=== PATIENT | female | born 1980 | race Caucasian/White ===

== ENCOUNTER → 2017-07-11 | Outpatient (CLI) | payer BC ==
[~2017-07-11] MED LIST: DOCU100C37 PO; FERR325T18 PO; IBUP-1773 PO; LEVO50TA6 PO; PREN-53 PO
--- NOTE | 2017-07-11 18:24 | Diagnostic Imaging Report ---
INDICATION: Size and dates. TECHNIQUE: Multiple real-time grayscale images were obtained over the gravid uterus. COMPARISON: None. FINDINGS: There is a single living intrauterine in a variable presentation. There is a normal volume of amniotic fluid. Placenta is posterior. There is no previa. The anatomical survey is unremarkable. The heart rate is 152 beats per minute and regular. Cervical length is 6.3 cm. The biometry correlates with a gestational age of 20 weeks 5 days. IMPRESSION: Single living intrauterine with a sonographically estimated gestational age of 20 weeks 5 days and estimated date of confinement of November 23, 2017. Biometrical measurements are as follows: Biparietal 4.77 cm, age 20 weeks 3 days. Head circumference 17.84 cm, age 20 weeks 3 days. Abdominal circumference 15.44 cm, age 21 weeks 4 days. Femur length 3.28 cm, age 20 weeks 2 days. Sonographic estimate age: 20 weeks 5 days. Sonographic estimated date of delivery: . Estimated Weight: 381 gm (+/- 56 gm). LMP percentile: 88%. heart rate: 152 beats per minute. number: 1 of 1. Dictated by: Dictated on workstation # [id number]
== END ==
LOC: RAD 17:27
PROVIDERS: ATTEND Obstetrics & Gynecology
DX: Z34.92 Encounter for supervision of normal pregnancy, unspecified, second trimester (principal); Z3A.20 20 weeks gestation of pregnancy
CPT/HCPCS: 76805

== ENCOUNTER 2017-11-24 09:18 | Inpatient (IN) | payer BC ==
[2017-11-24] VITALS (31 sets, daily range): BP systolic 98–130; BP diastolic 55–81
[~2017-11-24] VITALS: Ht 170.2 cm; Wt 88.0 kg
[2017-11-24] MEDS ORDERED: D5 LR IV SOLUTION 1,000 ML IV SCH ×2 (10:18→10:19)
[2017-11-24] MEDS ORDERED: fentaNYL INJECTION 100 MCG/2 ML AMP ONE (10:18)
[2017-11-24] MEDS ORDERED: BUPIVACAINE 0.25% 30 ML (SENSORCAINE) VIAL ONE (10:18)
[2017-11-24] MEDS ORDERED: LIDOCAINE PF 2% 5 ML (XYLOCAINE) VIAL ONE (10:18)
[2017-11-24 10:24] LABS: BASOPHILS % (AUTO) 0 % (0-10); EOSINOPHILS # (AUTO) 0.1 10^3/uL (0.0-0.3); EOSINOPHILS % (AUTO) 1 % (0-10); HEMATOCRIT 37 % (35-52); HEMOGLOBIN 12.8 G/DL (11.5-16.0); LYMPHOCYTES # (AUTO) 2.7 X 10^3 (1.0-4.0); LYMPHOCYTES % (AUTO) 29 % (12-44); MEAN CORPUSCULAR HGB CONC 35 G/DL (32-36); MEAN CORPUSCULAR VOLUME 93 FL (80-99); MEAN PLATELET VOLUME 9.6 FL (7.4-10.4); MONOCYTES # (AUTO) 0.9 X 10^3 (0.0-1.0); MONOCYTES % (AUTO) 9 % (0-12); NEUTROPHILS # (AUTO) 5.6 X 10^3 (1.8-7.8); NEUTROPHILS % (AUTO) 60 % (42-75); PLATELET COUNT 190 10^3/uL (130-400); RED BLOOD COUNT 3.94 10^6/uL (4.35-5.85); RED CELL DISTRIBUTION WIDTH 12.7 % (10.0-14.5); WHITE BLOOD COUNT 9.3 10^3/uL (4.3-11.0)
--- NOTE | 2017-11-24 10:24 | History & Physical-OB ---
OB - Chief Complaint & HPI Date/Time Date of Admission: Date of Admission: Nov 24, 2017 at 9:18 am Time Seen by Provider: 10:15 Chief Complaint/History OB-Reason for Admission/Chief: Onset of Labor Hx : 3 Hx Para: 1 Expected Date of Delivery: Nov 28, 2017 Gestational Age in Weeks: 39 Gestational Age in Days: 3 Admission Nurse Assessment Rev: Yes History of Labs A pos Antibody neg RI RPR NR HBsAg NR HIV NR GC neg GBS neg Allergies and Home Medications Allergies Coded Allergies: codeine (Unverified Allergy, Mild, 02/14/16) tachycardia, disorientation Home Medications Docusate Sodium 100 Mg Capsule, 100 MG PO BID PRN for CONSTIPATION Prescribed by: WENDY NOEL on 02/16/16814 Ferrous Sulfate 325 Mg Tablet, 325 MG PO DAILY@08 Prescribed by: WENDY NOEL on 02/16/16814 Ibuprofen 600 Mg Tablet, 600 MG PO Q6H Prescribed by: WENDY NOEL on 02/16/16814 Levothyroxine Sodium 50 Mcg Tablet, 50 MCG PO DAILY, (Reported) Mcg024/Iron Fumarate/FA/Dss 1 Each Tablet, 1 EACH PO DAILY, (Reported) Patient Home Medication List Home Medication List Reviewed: Yes OB - History Hx of Present Care: Yes Ultrasounds: Normal mid trimester US Obstetrical Complications: None Medical Complications: None Delivery History Hx Blood Disorders: No Adverse Rxn to Tranfusion: No Patient Past Medical History subclinical hypothyroidism Social History/Family History HIV/AIDS: No Sexually Transmitted Disease: No Immunizations Tetanus Booster (TDap): Less than 5yrs Date of Influenza Vaccine: Jan 29, 2016 OB - Admission Exam Physical Exam HEENT: NCAT Heart: Rhythm Normal Lungs: Clear Abdomen: Gravid Extremities: Normal Reflexes: Normal Cervical Dilatation: 9cm Effacement: 100% Station: -1 Membranes: Intact Heart Rate: 130's Accelerations: Accelerations Present Decelerations: No Decelerations Short Term Variability: Present Mcfp Variability: Average (6-25) Contractions on Admission: < 5 Minutes Apart Intensity: Firm Labs Laboratory Tests Test 11/24/17 09:55 Range/Units OB - Assessment/Plan/Diagnosis Assessment Assessment: active labor Admission Dx 37 yo @ 39.3 Active labor AMA GBS neg Admission Status: Inpatient Order (span 2 midnights) Reason for Inpatient Admission: 37 yo @ 39.3 Active labor AMA GBS neg Plan Plan: Expectant Management WENDY NOEL DO Nov 24, 2017 10:24 am
[2017-11-24 10:25] LABS: MEAN CORPUSCULAR HEMOGLOBIN 32 PG (25-34)
--- NOTE | 2017-11-24 10:25 | Discharge Inst-Women's Service ---
Discharge Inst-Women's Serv Depart Medication/Instructions New, Converted or Re-Newed RX: RX on Chart Consults/Follow Up Additional Follow Up: Yes Orders/Referrals Dr. Noel in 6 weeks Activity Activity: Activity as Tolerated Driving Instructions: No Driving for 1 Week NO SMOKING: NO SMOKING Nothing Inside Vagina: No Douching, No [place], No Tampons Diet Discharge Diet: No Restrictions Symptoms to Report to : Bleeding Excessive, Pain Increased, Fever Over 101 Degrees F, Vaginal Bleeding Increase, Questions/Concerns For Any Problems or Questions: Contact Your Physician Skin/Wound Care Bathing Instructions: Shower (or stiz baths x 2 weeks) WENDY NOEL DO Nov 24, 2017 10:25 am
[2017-11-24] MEDS ORDERED: ACHD5005 PO (10:27)
[2017-11-24] MEDS ORDERED: DOCU100C37 PO (10:27)
[2017-11-24] MEDS ORDERED: IBUP-844 PO (10:27)
[2017-11-24] MEDS ORDERED: Benzocaine/Menthol TP (10:27)
[2017-11-24] MEDS ORDERED: MINERAL OIL CONCENTRATE 99.9% 15 ML UDC TOP PRN (10:30)
[2017-11-24] MEDS ORDERED: TETANUS,DIPTH,PERTUSS P/F (BOOSTRIX) 0.5 ML VIAL IM ONE (10:30)
[2017-11-24] MEDS ORDERED: DIBUCAINE (NUPERCAINAL) 1% OINT 30 GM TOP PRN (10:30)
[2017-11-24] MEDS ORDERED: HYDROcodone/APAP 5 MG/325 MG (LORTAB) TAB PO PRN (10:30)
[2017-11-24] MEDS ORDERED: BENZOCAINE/MENTHOL (DERMOPLAST) 56 ML CAN TP PRN (10:30)
[2017-11-24] MEDS ORDERED: MEASLES,MUMPS,RUBELLA 1 EA INJ SQ ONE (10:30)
[2017-11-24] MEDS ORDERED: WITCH HAZEL(TUCKS) 40 EA JAR TOP PRN (10:30)
[2017-11-24] MEDS ORDERED: SUFENTA 0.6MCG/ML BUPIVA 0.125 100 ML ONE (10:32)
[2017-11-24] MEDS ORDERED: LIDOCAINE/EPI 2% 1:200,00 (XYLOCAINE) 10 ML VIAL ONE (10:42)
[2017-11-24] MEDS ORDERED: LACTATED RINGERS 1,000 ML IV SCH ×2 (10:44)
--- OUTSIDE RECORDS SUMMARY | 2017-11-24 10:44 | XMS REPORT ---
Author Author MADAN OSCAR [facility] [place] eClinicalWorks Address Unknown Phone Unavailable Care Team Providers Care [employer] Sealer Name Role Phone MADAN OSCAR CP Unavailable Allergies No Known Allergies Problems Problem Type Condition Code Onset Dates Condition Status Problem Unspecified breast screening V76.10 Active Assessment Encounter for immunization Z23 Active Problem Postnasal drip 784.91 Active Problem Other specified symptom associated with female genital organs 625.8 Active Problem Acute sinusitis, unspecified 461.9 Active Problem Screening for malignant neoplasm of the cervix V76.2 Active Problem Special screening examination, human papillomavirus [HPV] V73.81 Active Problem Unspecified procreative management V26.9 Active Problem General counseling for prescription of oral contraceptives V25.01 Active Medications No Known Medications Procedures Procedure Coding System Code Date SINGLE IMMUNIZATION ADMIN CPT-4 95873 Feb 04, 2016 FLUARIX QUAD P-FREE 3 AND UP .50 2015 CPT-4 62997 Feb 04, 2016 Results No Known Results Immunizations Vaccine Administration Date FLUARIX QUAD P-FREE 3 AND UP .50 2015Feb 04, 2016 Summary Purpose eClinicalWorks Submission
--- OUTSIDE RECORDS SUMMARY | 2017-11-24 10:44 | XMS REPORT ---
Author Author MADAN OSCAR Organization eClinicalWorks Address Unknown Phone Unavailable Care Team Providers Care Senior [employer] Developer Name Role Phone MADAN OSCAR CP Unavailable [...] System Code Date SINGLE IMMUNIZATION ADMIN CPT-4 51443 Jan 22, 2015 FLUARIX QUAD (3 & UP)-GSK-2014 CPT-4 60418 Jan 22, 2015 Results No Known Results Immunizations Vaccine Administration Date FLUARIX QUAD (3 & UP)-GSK-2014Jan 22, 2015 Summary Purpose eClinicalWorks Submission
[2017-11-24] MEDS ORDERED: EPIDURAL (SUFENTA 0.6MCG/ML BUPIVA 0.125%) 100 ML BAG EPI PRN ×2 (10:45)
[2017-11-24] MEDS ORDERED: diphenhydrAMINE 50 MG/ML INJ (BENADRYL) IV PRN ×2 (10:45)
[2017-11-24] MEDS ORDERED: NALOXONE 0.4 MG/ML 1 ML (NARCAN) VIAL IV PRN ×2 (10:45)
[2017-11-24] MEDS ORDERED: ONDANSETRON 4 MG/2 ML (SDV) Z0FRAN IV PRN ×2 (10:45)
--- OUTSIDE RECORDS SUMMARY | 2017-11-24 10:45 | XMS REPORT | Continuity of Care Document ---
Author Author [facility] Organization [facility] Address Unknown Phone Unavailable Allergies Active Description Code Type Severity Reaction Onset Reported/Identified Relationship to Patient Clinical Status Yes No Known Drug Allergies [id number] Drug Allergy Unknown N/A 04/21/2014 Yes codeine [id number] Drug Allergy Mild N/A 02/14/2016 Medications There is no data. Problems Date Dx Coded Attending Type Code Diagnosis Diagnosed By 04/21/2014 ANTOINETTE MARIN APRN Ot 574.21 CHOLELITHIAS NOS W OBSTR 04/21/2014 ANTOINETTE MARIN APRN Ot 789.00 ABDOMINAL PAIN, UNSPECIFIED SITE 11/07/2015 WENDY NOEL DO Ot Z36 ENCOUNTER FOR SCREENING OF MOT 11/07/2015 WENDY NOEL DO Ot Z3A.22 22 WEEKS GESTATION OF 11/19/2015 WENDY NOEL DO Ot Z36 ENCOUNTER FOR SCREENING OF MOT 11/19/2015 WENDY NOEL DO, Ot Z3A.22 22 WEEKS GESTATION OF 12/25/2015 WENDY NOEL DO Ot Z36 ENCOUNTER FOR SCREENING OF MOT 01/07/2016 WENDY NOEL DO Ot Z36 ENCOUNTER FOR SCREENING OF MOT 02/15/2016 WENDY NOEL DO Ot Z36 ENCOUNTER FOR SCREENING OF MOT 02/15/2016 WENDY NOEL DO, Ot Z3A.22 22 WEEKS GESTATION OF 02/15/2016 WENDY NOEL DO Ot Z36 ENCOUNTER FOR SCREENING OF MOT 02/17/2016 WENDY NOEL DO Ot E02 SUBCLINICAL IODINE-DEFICIENCY HYPOTHYROI 02/17/2016 WENDY NOEL DO Ot O09.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 OF ELDERLY MULTIGRAVIDA, THI 02/17/2016 WENDY NOEL DO Ot O60.14X0 LABOR THIRD TRI W DELIVE 02/17/2016 WENDY NOEL DO Ot O99.283 ENDO, NUTRITIONAL AND METAB DISEASES COM 02/17/2016 WENDY NOEL DO Ot Z37.0 SINGLE LIVE 02/17/2016 WENDY NOEL DO Ot Z3A.36 36 WEEKS GESTATION OF 07/07/2017 WENDY NOEL DO Ot Z36 ENCOUNTER FOR SCREENING OF MOT 07/07/2017 WENDY NOEL DO Ot Z3A.22 22 WEEKS GESTATION OF 07/07/2017 WENDY NOEL DO Ot Z36 ENCOUNTER FOR SCREENING OF MOT 07/12/2017 WENDY NOEL DO Ot Z34.92 ENCNTR FOR SUPRVSN OF NORMAL PREG, UNSP, 07/12/2017 WENDY NOEL DO Ot Z3A.20 20 WEEKS GESTATION OF Procedures Code Description Performed By Performed On [id number] DIVISION OF FEMALE PERINEUM, EXTERNAL AP 02/15/2016 [id number] DELIVERY OF PRODUCTS OF CONCEPTION, EXTE 02/15/2016 Results Test Result Range Complete blood count (CBC) with automated white blood cell (WBC) differential - 02/14/16 23:53 Blood leukocytes automated count (number/volume) 10.6 10*3/uL 4.3-11.0 Blood erythrocytes automated count (number/volume) 4.04 10*6/uL 4.35-5.85 Venous blood hemoglobin measurement (mass/volume) 13.2 g/dL 11.5-16.0 Blood hematocrit (volume fraction) 37 % 35-52 Automated erythrocyte mean corpuscular volume 93 [foz_us] 80-99 Automated erythrocyte mean corpuscular hemoglobin (mass per erythrocyte) 33 pg 25-34 Automated erythrocyte mean corpuscular hemoglobin concentration measurement ( mass/volume) 35 g/dL 32-36 Automated erythrocyte distribution width ratio 12.3 % 10.0-14.5 Automated blood platelet count (count/volume) 210 10*3/uL 130-400 Automated blood platelet mean volume measurement 9.8 [foz_us] 7.4-10.4 Automated blood neutrophils/100 leukocytes 50 % 42-75 Automated blood lymphocytes/100 leukocytes 40 % 12-44 Blood monocytes/100 leukocytes 9 % 0-12 Automated blood eosinophils/100 leukocytes 1 % 0-10 Automated blood basophils/100 leukocytes 0 % 0-10 Blood neutrophils automated count (number/volume) 5.3 10*3 1.8-7.8 Blood lymphocytes automated count (number/volume) 4.3 10*3 1.0-4.0 Blood monocytes automated count (number/volume) 0.9 10*3 0.0-1.0 Automated eosinophil count 0.1 10*3/uL 0.0-0.3 Automated blood basophil count (count/volume) 0.0 10*3/uL 0.0-0.1 Blood type T Indirect antibody screen panel - 02/14/16 23:53 ABO+Rh group AP NRG Transfusion band number [id number] NRG Blood group antibody screen NEGATIVE NRG Complete blood count (CBC) with automated white blood cell (WBC) differential - 02/16/16 05:41 Blood leukocytes automated count (number/volume) 15.1 10*3/uL 4.3-11.0 Blood erythrocytes automated count (number/volume) 3.94 10*6/uL 4.35-5.85 Venous blood hemoglobin measurement (mass/volume) 12.8 g/dL 11.5-16.0 Blood hematocrit (volume fraction) 37 % 35-52 Automated erythrocyte mean corpuscular volume 93 [foz_us] 80-99 Automated erythrocyte mean corpuscular hemoglobin (mass per erythrocyte) 33 pg 25-34 Automated erythrocyte mean corpuscular hemoglobin concentration measurement ( mass/volume) 35 g/dL 32-36 Automated erythrocyte distribution width ratio 12.4 % 10.0-14.5 Automated blood platelet count (count/volume) 196 10*3/uL 130-400 Automated blood platelet mean volume measurement 9.5 [foz_us] 7.4-10.4 Automated blood neutrophils/100 leukocytes 67 % 42-75 Automated blood lymphocytes/100 leukocytes 24 % 12-44 Blood monocytes/100 leukocytes 8 % 0-12 Automated blood eosinophils/100 leukocytes 1 % 0-10 Automated blood basophils/100 leukocytes 0 % 0-10 Blood neutrophils automated count (number/volume) 10.2 10*3 1.8-7.8 Blood lymphocytes automated count (number/volume) 3.6 10*3 1.0-4.0 Blood monocytes automated count (number/volume) 1.2 10*3 0.0-1.0 Automated eosinophil count 0.1 10*3/uL 0.0-0.3 Automated blood basophil count (count/volume) 0.0 10*3/uL 0.0-0.1 Encounters ACCT No. Visit Date/Time Discharge Status Pt. Type Provider Facility Loc./Unit Complaint [id number] 07/11/2017 17:27:00 07/11/2017 23:59:59 CLS Outpatient SADIE LOPEZ WENDY Butcher [facility] RAD Z33.1 [id number] 02/14/2016 23:13:00 02/17/2016 17:00:00 DIS Inpatient SADIE DO WENDY Hadley [facility] LDRP [place] [id number] 12/23/2015 15:28:00 12/23/2015 23:59:59 CLS Outpatient VAMSHIVERONICA LOPEZ WENDY Hadley [facility] RAD ,INCOMPLETE VIEWS [id number] 11/06/2015 13:06:00 11/06/2015 23:59:59 CLS Outpatient SADIE DO WENDY Hadley [facility] RAD SURVEY [id number] 04/21/2014 15:11:00 04/21/2014 19:48:00 DIS Emergency ANTOINETTE MARIN APRN [facility] ER ABD PAIN
--- OUTSIDE RECORDS SUMMARY | 2017-11-24 10:45 | XMS REPORT ---
Author Author MADAN OSCAR [facility] [place] eClinicalWorks Address Unknown Phone Unavailable Care Team Providers Care Sales Department Supervisor Name Role Phone MADAN OSCAR CP Unavailable Allergies, Adverse Reactions, Alerts Substance Reaction Event Type N.K.D.A. Info Not Available Non Drug Allergy Problems Problem Type Condition Code Onset Dates Condition Status Assessment Z33.1 Active Problem Unspecified breast screening V76.10 Active Assessment Localized enlarged lymph nodes R59.0 Active Problem Postnasal drip 784.91 Active Problem [...] Medications Procedures Procedure Coding System Code Date Office Visit, Est Pt., Level 3 CPT-4 44241 July 31, 2015 Vital Signs Date/Time: July 31, 2015 Temperature 98 F Weight 140 lbs Height 67 in BMI 21.92 Index Blood Pressure Diastolic 70 mmHg Blood Pressure Systolic 114 mmHg Cardiac Monitoring Heart Rate 92 bpm Results No Known Results Summary Purpose eClinicalWorks Submission
[2017-11-24] MEDS: OXYTOCIN/NORMAL SALINE 500 ML IV SCH ×2 (11:25→12:03)
--- NOTE | 2017-11-24 11:36 | OB Labor & Delivery Record ---
L&D History Date of Service Date of Service: Nov 24, 2017 History Expected Date of Delivery: Nov 28, 2017 Gestational Age in Weeks: 39 Hx : 3 Hx Para: 1 Complications Events: Routine care Operative Indications (Cesarea: N/A-Vaginal Delivery Intrapartal Events: None L&D Stage1 Stage One Onset of Labor - Date: Nov 24, 2017 Monitors and Tracing Monitor Mode: External Monitor Accelerations: Uniform Monitor Decelerations: Early Station: -1 Fci Variability: Average (6-10) Short Term Variability: Present Presentation: Vertex Rupture of Membranes Spontaneous Ruture of Membrane: No Amniotic Membrane Rupture Time: 10:45 Amniotic Membrane Fluid Desc.: Clear Vaginal Bleeding Description: Normal Show Induction/Anesthesia Epidural Cath Placement - Time: 10:30 L&D Stage2 Stage Two Stage II Date: Nov 24, 2017 Monitors and Tracing Monitor Mode: External Monitor Accelerations: Uniform Monitor Decelerations: Variable Fci Variability: Average (6-10) Short Term Variability: Present Position: Right Occiput Anterior Presentation: Vertex Cord Descript/Complications Cord Vessel Description: 3 Vessels Delivery Type Delivery Method: Spontaneous Vaginal Anterior Shoulder: Right Episiotomy/Perineal Laceration Laceraction(s)/Extensions: Yes Episiotomy Description: Midline, 2nd degree Location Modifier: Medial Degree (describe repair) midline 2nd degree laceration repaired using 3-0 and 2-0 vicryl suture in usual fashion. Condition of Infant Delivery 1 minute Comment: 9 5 minute Comment: 9 Notes Live male infant 9lbs 1 oz. Condition of Infant Condition of Infant: Living Exam: No Observed Abnormalities Resuscitation Resuscitation: N/A - Spontaneous Resp L&D Stage3 Stage Three Stage III Date: Nov 24, 2017 Pictocin Pitocin Administration Comment: 30 mu wide open at delivery of placenta Placenta Delivery Placenta Delivery: Spontaneous Delivery Summary Summary Estimated blood loss (mL): 350 Attending at delivery: Wendy Noel DO Condition of Delivery Examined: Cervix Examined, Uterus Explored Post Hemorrhage: No Condition of Mother stable Condition of Infant (s) stable WENDY NOEL DO Nov 24, 2017 11:36 am
[2017-11-24] MEDS: IBUPROFEN 600 MG (MOTRIN) TAB PO SCH ×3 (12:23→23:47)
[2017-11-24] MEDS ORDERED: CATHETER FLUSH 10 ML SYR IV SCH ×3 (14:00)
[2017-11-24] MEDS: DOCUSATE SODIUM 100 MG (COLACE) CAP PO SCH (23:47)
[2017-11-25 06:20] VITALS: BP 109/72
[2017-11-25] MEDS: IBUPROFEN 600 MG (MOTRIN) TAB PO SCH ×2 (06:20→13:14)
[2017-11-25 06:45] LABS: BASOPHILS % (AUTO) 0 % (0-10); EOSINOPHILS # (AUTO) 0.1 10^3/uL (0.0-0.3); EOSINOPHILS % (AUTO) 1 % (0-10); HEMATOCRIT 35 % (35-52); HEMOGLOBIN 12.1 G/DL (11.5-16.0); LYMPHOCYTES # (AUTO) 2.8 X 10^3 (1.0-4.0); LYMPHOCYTES % (AUTO) 27 % (12-44); MEAN CORPUSCULAR HEMOGLOBIN 33 PG (25-34); MEAN CORPUSCULAR HGB CONC 35 G/DL (32-36); MEAN CORPUSCULAR VOLUME 94 FL (80-99); MEAN PLATELET VOLUME 9.6 FL (7.4-10.4); MONOCYTES # (AUTO) 0.9 X 10^3 (0.0-1.0); MONOCYTES % (AUTO) 9 % (0-12); NEUTROPHILS # (AUTO) 6.7 X 10^3 (1.8-7.8); NEUTROPHILS % (AUTO) 64 % (42-75); PLATELET COUNT 145 10^3/uL (130-400); RED CELL DISTRIBUTION WIDTH 12.8 % (10.0-14.5); WHITE BLOOD COUNT 10.5 10^3/uL (4.3-11.0)
[2017-11-25] MEDS ORDERED: FERROUS SULF 325 MG (IRON) TAB PO SCH (07:00)
[2017-11-25 08:00] VITALS: BP 99/61
--- NOTE | 2017-11-25 09:26 | Anesthesia-General Post-Op ---
MAC Patient Condition Mental Status/LOC: Same as Preop Cardiovascular: Satisfactory Nausea/Vomiting: Absent Respiratory: Satisfactory Pain: Controlled Complications: Absent Post Op Complications Complications None Follow Up Care/Instructions Patient Instructions None needed. Anesthesiology Discharge Order Discharge Order Patient is doing well, no complaints, stable vital signs, no apparent adverse anesthesia problems. No complications reported per nursing. DEMETRIA BRAVO CRNA Nov 25, 2017 09:26
[2017-11-25] MEDS: DOCUSATE SODIUM 100 MG (COLACE) CAP PO SCH (09:38)
[2017-11-25] MEDS: PRENATAL VITAMIN 1 EA TAB PO SCH ×2 (09:38→09:40)
--- NOTE | 2017-11-25 10:03 | Postpartum Progress Note ---
Note Note Day #1 Subjective: Patient is without complaints. Ambulating, voiding. Tolerating a regular diet without nausea or vomiting. Normal lochia. Pain is well controlled with oral pain medications. Objective: Vital Sign - Last 24 Hours 11/24/17 11/24/17 11/24/17 11/24/17 10:30 10:32 10:34 10:37 Pulse 77 77 82 88 Resp 18 18 18 18 B/P (MAP) 126/73 (90) 114/71 (85) 111/68 (82) 113/70 (84) Pulse Ox 100 100 100 100 O2 Delivery Room Air Room Air Room Air Room Air 11/24/17 11/24/17 11/24/17 11/24/17 10:40 10:43 10:46 10:49 Pulse 80 78 81 85 Resp 18 18 18 18 B/P (MAP) 113/68 (83) 114/70 (85) 113/71 (85) 113/72 (86) Pulse Ox 100 100 100 100 O2 Delivery Room Air Room Air Room Air Room Air 11/24/17 11/24/17 11/24/17 11/24/17 10:55 11:00 11:03 11:09 Pulse 93 93 100 102 Resp 18 18 18 18 B/P (MAP) 130/71 (90) 117/62 (80) 125/63 (83) 125/64 (84) O2 Delivery Room Air Room Air Room Air Room Air 11/24/17 11/24/17 11/24/17 11/24/17 11:15 11:20 11:25 11:30 Pulse 100 85 82 93 Resp 18 B/P (MAP) 116/59 (78) 127/59 (81) 109/59 (76) 100/59 (73) O2 Delivery Room Air 11/24/17 11/24/17 11/24/17 11/24/17 11:45 12:00 12:15 12:30 Temp 98.9 Pulse 90 80 73 71 Resp 18 18 18 18 B/P (MAP) 106/61 (76) 115/70 (85) 109/55 (73) 115/63 (80) O2 Delivery Room Air Room Air Room Air Room Air 11/24/17 11/24/17 11/24/17 11/24/17 12:45 13:00 13:15 13:30 Temp 99.4 Pulse 69 67 57 59 Resp 18 18 18 18 B/P (MAP) 118/61 (80) 113/59 (77) 104/56 (72) 104/59 (74) O2 Delivery Room Air Room Air Room Air Room Air 11/24/17 11/24/17 11/24/17 11/24/17 13:45 16:15 20:04 23:51 Temp 99.2 99.2 98.6 Pulse 63 64 60 76 Resp 18 18 18 18 B/P (MAP) 106/60 (75) 105/63 (77) 103/65 (78) 101/55 (70) Pulse Ox 100 96 97 O2 Delivery Room Air Room Air Room Air Room Air 11/25/17 11/25/17 06:20 08:00 Temp 98.1 99.0 Pulse 62 72 Resp 18 20 B/P (MAP) 109/72 (84) 99/61 (74) Pulse Ox 97 98 O2 Delivery Room Air Room Air Intake and Output 11/24/17 11/24/17 11/25/17 15:00 23:00 07:00 Intake Total 2000 ml Balance 2000 ml Physical Exam: General - Alert and oriented, no apparent distress Abdomen - Soft, appropriately tender to palpation, non-distended, fundus firm at umbilicus Extremities - no edema, negative Crescencio's bilaterally Assessment: PPD 1 NVD Plan: Routine care. Encourage breast feeding. Encourage ambulation. Ferrous sulfate supplementation. Plan for discharge today Vitals - Labs Vital Signs - I&O Vital Signs Date Time Temp Pulse Resp B/P (MAP) Pulse Ox O2 Delivery O2 Flow Rate FiO2 11/25/17 08:00 99.0 72 20 99/61 (74) 98 Room Air 11/25/17 06:20 98.1 62 18 109/72 (84) 97 Room Air 11/24/17 23:51 98.6 76 18 101/55 (70) 97 Room Air 11/24/17 20:04 99.2 60 18 103/65 (78) 96 Room Air 11/24/17 16:15 99.2 64 18 105/63 (77) 100 Room Air 11/24/17 13:45 63 18 106/60 (75) Room Air 11/24/17 13:30 59 18 104/59 (74) Room Air 8/9/18 13:15 57 18 104/56 (72) Room Air 11/24/17 13:00 99.4 67 18 113/59 (77) Room Air 11/24/17 12:45 69 18 118/61 (80) Room Air 11/24/17 12:30 71 18 115/63 (80) Room Air 11/24/17 12:15 73 18 109/55 (73) Room Air 11/24/17 12:00 98.9 80 18 115/70 (85) Room Air 11/24/17 11:45 90 18 106/61 (76) Room Air 11/24/17 11:30 93 18 100/59 (73) Room Air 11/24/17 11:25 82 109/59 (76) 11/24/17 11:20 85 127/59 (81) 11/24/17 11:15 100 116/59 (78) 11/24/17 11:09 102 18 125/64 (84) Room Air 11/24/17 11:03 100 18 125/63 (83) Room Air 11/24/17 11:00 93 18 117/62 (80) Room Air 11/24/17 10:55 93 18 130/71 (90) Room Air 11/24/17 10:49 85 18 113/72 (86) 100 Room Air 11/24/17 10:46 81 18 113/71 (85) 100 Room Air 11/24/17 10:43 78 18 114/70 (85) 100 Room Air 11/24/17 10:40 80 18 113/68 (83) 100 Room Air 11/24/17 10:37 88 18 113/70 (84) 100 Room Air 11/24/17 10:34 82 18 111/68 (82) 100 Room Air 11/24/17 10:32 77 18 114/71 (85) 100 Room Air 11/24/17 10:30 77 18 126/73 (90) 100 Room Air I & O 11/25/17 07:00 Intake Total 2000 ml Balance 2000 ml Labs Laboratory Tests 11/25/17 06:30: White Blood Count 10.5, Red Blood Count 3.70L, Hemoglobin 12.1, Hematocrit 35, Mean Corpuscular Volume 94, Mean Corpuscular Hemoglobin 33, Mean Corpuscular Hemoglobin Concent 35, Red Cell Distribution Width 12.8, Platelet Count 145, Mean Platelet Volume 9.6, Neutrophils (%) (Auto) 64, Lymphocytes (%) (Auto) 27, Monocytes (%) (Auto) 9, Eosinophils (%) (Auto) 1, Basophils (%) (Auto) 0, Neutrophils # (Auto) 6.7, Lymphocytes # (Auto) 2.8, Monocytes # (Auto) 0.9, Eosinophils # (Auto) 0.1, Basophils # (Auto) 0.0 WENDY NOEL DO Nov 25, 2017 10:03 am
[2017-11-25 12:00] VITALS: BP 113/71
[2017-11-25 16:30] VITALS: BP 123/79
[2017-11-25 17:00] VITALS: BP 123/79
== END 2017-11-25 17:00 | disposition home or self-care (01) | DRG 775 ==
LOC: LDRP 09:18
PROVIDERS: ADMIT Obstetrics & Gynecology; ATTEND Obstetrics & Gynecology
PROC: 10E0XZZ Delivery of Products of Conception, External Approach (ICD-10-PCS; principal; 2017-11-24)
PROC: 0KQM0ZZ Repair Perineum Muscle, Open Approach (ICD-10-PCS; 2017-11-24)
DX: O70.1 Second degree perineal laceration during delivery (principal); O99.284 Endocrine, nutritional and metabolic diseases complicating childbirth; E02 Subclinical iodine-deficiency hypothyroidism; Z37.0 Single live birth; Z3A.39 39 weeks gestation of pregnancy
CPT/HCPCS: 36415; 85025; 86850; 86900; 86901; 99212

== ENCOUNTER → 2019-10-08 | Outpatient (CLI) | payer BC ==
[~2019-10-08] MED LIST changes: +ACHD5005 PO; +Benzocaine/Menthol TP; +IBUP-844 PO
--- NOTE | 2019-10-08 17:31 | Diagnostic Imaging Report ---
INDICATION: Routine screening. COMPARISON: No prior mammograms are available for comparison. This is a baseline study. TECHNIQUE: 2-D and 3-D bilateral screening mammography was performed with CAD. FINDINGS: Bilateral subpectoral breast implants are noted. Implant contours appear smooth. Breast parenchyma is heterogeneously dense, limiting the sensitivity of mammography. No mass or malignant appearing microcalcifications are seen. Axillae are unremarkable. IMPRESSION: BI-RADS Category 2. No mammographic features suspicious for malignancy are identified. ACR BI-RADS Category 2: Benign findings. Result letter will be mailed to the patient. Note: At least 10% of breast cancer is not imaged by mammography. Dictated by: Dictated on workstation # [id number]
== END ==
LOC: RAD 14:40
PROVIDERS: ATTEND Internal Medicine
DX: Z12.31 Encounter for screening mammogram for malignant neoplasm of breast (principal)
CPT/HCPCS: 77063; 77067

== ENCOUNTER → 2021-10-20 | Outpatient (CLI) | payer BC ==
--- NOTE | 2021-10-20 15:22 | Diagnostic Imaging Report ---
INDICATION: survey. TECHNIQUE: Multiple real-time grayscale images were obtained over the gravid uterus. COMPARISON: None FINDINGS: There is a single live fetus in a cephalic presentation. heart rate was recorded at 132 bpm. Placenta is anterior. Amniotic fluid volume is normal. Cervical length is 5 cm. kidneys, bladder and stomach are unremarkable. brains unremarkable. There is a four-chamber heart. There is a three-vessel cord with normal insertion. spine is unremarkable. Biometrical measurements are as follows: Biparietal 4.63 cm, age 20 weeks 0 days. Head circumference 17.01 cm, age 19 weeks 5 days. Abdominal circumference 14.52 cm, age 19 weeks 6 days. Femur length 3.04 cm, age 19 weeks 3 days. Sonographic estimate age: 19 weeks 6 days. Sonographic estimated date of delivery: 03/10/2022. Estimated Weight: 305 gm (+/- 45 gm). LMP percentile: 41%. heart rate: 132 beats per minute. number: 1 of 1. IMPRESSION: Single live IUP 19 weeks 6 days gestational age. Estimated date of confinement sonographically is 03/10/2022. Dictated by: Dictated on workstation # [id number]
== END ==
LOC: RAD 11:48
PROVIDERS: ATTEND Obstetrics & Gynecology
DX: Z34.02 Encounter for supervision of normal first pregnancy, second trimester (principal); Z3A.19 19 weeks gestation of pregnancy
CPT/HCPCS: 76805

== ENCOUNTER 2022-03-03 21:06 | Inpatient (IN) | payer BC ==
[~2022-03-03] VITALS: Ht 170.2 cm; Wt 84.5 kg
[2022-03-03 21:41] LABS: BILIRUBIN,URINE NEGATIVE (NEGATIVE); CLARITY,URINE CLEAR; COLOR,URINE YELLOW; GLUCOSE, URINE (UA) NEGATIVE (NEGATIVE); KETONES,URINE NEGATIVE (NEGATIVE); LEUKOCYTE ESTERASE ,URINE 1+ (NEGATIVE); NITRITE,URINE NEGATIVE (NEGATIVE); PROTEIN,URINE NEGATIVE (NEGATIVE)
[2022-03-03 21:49] VITALS: BP 124/71
[2022-03-03 22:27] LABS: BACTERIA,URINE FEW /HPF; HYALINE CASTS, URINE RARE /LPF; SQUAMOUS EPITHELIAL CELL,UR 0-2 /HPF
[2022-03-03] MEDS ORDERED: AMPICILLIN FOR IV USE 2,000 MG in NS (IVPB) 50 ML IV SCH (22:35)
[2022-03-03 23:28] LABS: BASOPHILS % (AUTO) 0 % (0-10); EOSINOPHILS # (AUTO) 0.1 10^3/uL (0.0-0.3); EOSINOPHILS % (AUTO) 1 % (0-10); HEMATOCRIT 40 % (35-52); HEMOGLOBIN 13.5 g/dL (11.5-16.0); LYMPHOCYTES % (AUTO) 42 % (12-44); MEAN CORPUSCULAR HEMOGLOBIN 32 pg (25-34); MEAN CORPUSCULAR HGB CONC 34 g/dL (32-36); MEAN CORPUSCULAR VOLUME 94 fL (80-99); MONOCYTES # (AUTO) 0.7 10^3/uL (0.0-1.0); MONOCYTES % (AUTO) 8 % (0-12); NEUTROPHILS # (AUTO) 4.5 10^3/uL (1.8-7.8); NEUTROPHILS % (AUTO) 49 % (42-75); PLATELET COUNT 163 10^3/uL (130-400); WHITE BLOOD COUNT 9.4 10^3/uL (4.3-11.0)
[2022-03-04] VITALS (57 sets, daily range): BP systolic 80–131; BP diastolic 50–75
[2022-03-04] MEDS ORDERED: LACTATED RINGERS 1,000 ML IV ONE (00:15)
[2022-03-04] MEDS ORDERED: NALOXONE 0.4 MG/ML 1 ML (NARCAN) VIAL IV PRN ×2 (00:15→10:45)
[2022-03-04] MEDS ORDERED: CATHETER FLUSH 10 ML SYR IV PRN (00:15)
[2022-03-04] MEDS ORDERED: fentaNYL INJ 100 MCG/2 ML AMP ONE (00:42)
[2022-03-04] MEDS: D5 LR IV SOLUTION 1,000 ML IV SCH ×2 (00:45→08:35)
[2022-03-04] MEDS ORDERED: BUPIVACAINE 0.25% 30 ML (SENSORCAINE) VIAL ONE (01:08)
[2022-03-04] MEDS: AMPICILLIN FOR IV USE 1,000 MG in NS (IVPB) 50 ML IV SCH ×2 (03:36→07:14)
--- NOTE | 2022-03-04 07:55 | History & Physical-OB ---
AARON GREGORY 03/04/22 7:55am: OB - Chief Complaint & HPI Date/Time Date of Admission: Date of Admission: Mar 03, 2022 at 22:33 Date seen by a Provider: Mar 04, 2022 Time Seen by a Provider: 07:45 Chief Complaint/History OB-Reason for Admission/Chief: Onset of Labor Hx : 4 Hx Para: 2 Expected Date of Delivery: Mar 11, 2022 Gestational Age in Weeks: 39 Gestational Age in Days: 0 Admission Nurse Assessment Rev: Yes Allergies and Home Medications Allergies Coded Allergies: codeine (Unverified Allergy, Mild, 02/14/16) tachycardia, disorientation Patient Home Medication List Home Medication List Reviewed: Yes Docusate Sodium (Docusate Sodium) 100 Mg Capsule, 100 MG PO BID PRN for CONSTIPATION-1ST LINE Prescribed by: KALEN NOEL on 11/24/17 1027 Ferrous Sulfate (Ferrous Sulfate) 325 Mg Tablet, 325 MG PO DAILY@08 Prescribed by: KALEN NOEL on 02/16/16 0815 Hydrocodone Bit/Acetaminophen (Lortab 5 Mg Tablet) 1 Tab Tab, 1-2 TAB PO Q4H PRN for PAIN-MODERATE Prescribed by: KALEN NOEL on 11/24/17 1027 Ibuprofen (Ibu) 600 Mg Tablet, 600 MG PO Q6H Prescribed by: KALEN NOEL on 11/24/17 1027 Levothyroxine Sodium (Levothyroxine Sodium) 50 Mcg Tablet, 50 MCG PO DAILY, (Reported) Entered as Reported by: RUBI ROB on 02/15/166 Hrm331/Iron Fumarate/FA/Dss ( 19 Tablet) 1 Each Tablet, 1 EACH PO DAILY, (Reported) Entered as Reported by: RUBI ROB on 02/15/165 [Benzocaine/Menthol] 56 ML AEROSOL, 56 ML TP UD PRN for PAIN- SEE INSTRUCTIONS Prescribed by: KALEN NOEL on 11/24/17 1027 OB - History Hx of Present Care: Yes Ultrasounds: Normal mid trimester US Obstetrical Complications: None Information Induced Hypertension: No Maternal Gestational Diabetes: No Hemorrhage: No Obstetrical History Hx : 4 Hx Para: 2 Hx # Term Pregnancies: 1 Hx # Pregnancies: 1 Number of Living Children: 2 Hx Termination: No Hx Total # of Abortions (Spona: 1 Hx Multiple Gestation: No Hx Ectopic : No Hx Stillbirth: No Hx Complication: No Hx Induced Hypertens: No Hx Hemorrhage: No Delivery History Hx Dystocia: No Hx Forceps Assisted Delivery: No Hx Vacuum Extraction Assisted: No Hx Placenta Abnormality: No Hx Distress: No Hx Large For Gestational Age I: No Hx Small for Gestational Age I: No Hx Section: No Hx Vaginal Delivery Post C-Sec: No Hx Blood Disorders: No Adverse Rxn to Tranfusion: No Patient Past Medical History subclinical hypothyroidism. Surgical history includes appendectomy, cholecystectomy, augmentation mammoplasty, and loop electrosurgical excision procedure of cervix Social History/Family History Alcohol Use: Denies Use Recreational Drug Use: No Smoking Cessation: Former smoker (Quit in her 20's) 2nd Hand Smoke Exposure: No Immunizations Influenza Vaccine Up-to-Date: Yes; Up-to-Date Hepatitis A: Yes Hepatitis B: Yes Tetanus Booster (TDap): Less than 5yrs Rubella: immune RPR/VDRL: Negative GBS Status: Positive HBsAG: Negative OB - Admission Exam Physical Exam Vitals: Vital Signs 03/04/22 03/04/22 02:08 06:45 Temp 36.7 Pulse 53 Resp 16 B/P (MAP) 96/54 (68) Pulse Ox 100 O2 Delivery Room Air HEENT: Moist Membranes Heart: Rhythm Normal Lungs: Clear Abdomen: Non tender Extremities: Normal Cervical Dilatation: 6cm Effacement: 100% Station: 0 Membranes: Intact Heart Rate: 120's Accelerations: Accelerations Present Decelerations: No Decelerations Short Term Variability: Present Documentation Nurse Variability: Average (6-25) Contractions on Admission: 6-10 Minutes Apart Date/Time Contractions Began;: 03/03/22 around 20:00 Frequency of Contractions: Every 5 minutes Duration: a minute Intensity: Mild Labs Laboratory Tests Test 03/03/22 21:15 03/03/22 23:10 Range/Units Urine Color YELLOW Urine Clarity CLEAR Urine pH 7.0 5-9 Urine Specific [place] <=1.005 1.016-1.022 Urine Protein NEGATIVE NEGATIVE Urine Glucose (UA) NEGATIVE NEGATIVE Urine Ketones NEGATIVE NEGATIVE Urine Nitrite NEGATIVE NEGATIVE Urine Bilirubin NEGATIVE NEGATIVE Urine Urobilinogen 0.2 < = 1.0 MG/DL Urine Leukocyte Esterase 1+ H NEGATIVE Urine RBC (Auto) NEGATIVE NEGATIVE Urine RBC NONE /HPF Urine WBC 2-5 /HPF Urine Squamous Epithelial Cells 0-2 /HPF Urine Crystals NONE /LPF Urine Bacteria FEW H /HPF Urine Casts PRESENT /LPF Urine Hyaline Casts RARE /LPF Urine Mucus NEGATIVE /LPF Urine Culture Indicated YES White Blood Count 9.4 4.3-11.0 10^3/uL Red Blood Count 4.23 3.80-5.11 10^6/uL Hemoglobin 13.5 11.5-16.0 g/dL Hematocrit 40 35-52 % Mean Corpuscular Volume 94 80-99 fL Mean Corpuscular Hemoglobin 32 25-34 pg Mean Corpuscular Hemoglobin Concent 34 32-36 g/dL Red Cell Distribution Width 12.6 10.0-14.5 % Platelet Count 163 130-400 10^3/uL Mean Platelet Volume 10.0 9.0-12.2 fL Immature Granulocyte % (Auto) 0 % Neutrophils (%) (Auto) 49 42-75 % Lymphocytes (%) (Auto) 42 12-44 % Monocytes (%) (Auto) 8 0-12 % Eosinophils (%) (Auto) 1 0-10 % Basophils (%) (Auto) 0 0-10 % Neutrophils # (Auto) 4.5 1.8-7.8 10^3/uL Lymphocytes # (Auto) 4.0 1.0-4.0 10^3/uL Monocytes # (Auto) 0.7 0.0-1.0 10^3/uL Eosinophils # (Auto) 0.1 0.0-0.3 10^3/uL Basophils # (Auto) 0.0 0.0-0.1 10^3/uL Immature Granulocyte # (Auto) 0.0 0.0-0.1 10^3/uL OB - Assessment/Plan/Diagnosis Assessment Assessment: active labor Admission Dx Patient is a 41yo F that is 1112 at 39w0d. She started having contractions last night around 20:00 and decided to come to the hospital because they were getting closer. The patient is unsure how close the contractions were. When she got to the hospital she was around 3-4cm dilated. She received an epidural around 01:30 this morning. Patient was awake, laying in bed at the beginning of the interview. She states that she is unable to feel any contractions since receiving the epidural and she was able to sleep for about 4 hours this morning after receiving it. Per nurses report, the patient was around 6cm at 07:00 this morning. Patient denies headache, chest pain, SOB, nausea, vomiting, and edema of her extremities. Admission Status: Observation Plan Plan: Expectant Management Other Plan Patient's membranes will be ruptured manually this morning and then expectant management will be done. Patient continues to have regular contractions and fet al heart rate will be monitored. Patient is GBS positive and has received two doses of IV ampicillin. KALEN NOEL DO 03/04/22 10:39am: Allergies and Home Medications Allergies Coded Allergies: codeine (Unverified Allergy, Mild, 02/14/16) tachycardia, disorientation Patient Home Medication List Docusate Sodium (Docusate Sodium) 100 Mg Capsule, 100 MG PO BID PRN for CONSTIPATION-1ST LINE Prescribed by: KALEN NOEL on 11/24/17 1027 Ferrous Sulfate (Ferrous Sulfate) 325 Mg Tablet, 325 MG PO DAILY@08 Prescribed by: KALEN NOEL on 02/16/16 0815 Hydrocodone Bit/Acetaminophen (Lortab 5 Mg Tablet) 1 Tab Tab, 1-2 TAB PO Q4H PRN for PAIN-MODERATE Prescribed by: KALEN NOEL on 11/24/17 1027 Ibuprofen (Ibu) 600 Mg Tablet, 600 MG PO Q6H Prescribed by: KALEN NOEL on 11/24/17 1027 Levothyroxine Sodium (Levothyroxine Sodium) 50 Mcg Tablet, 50 MCG PO DAILY, (Reported) Entered as Reported by: RUBI ROB on 02/15/16 000 Mos500/Iron Fumarate/FA/Dss ( 19 Tablet) 1 Each Tablet, 1 EACH PO DAILY, (Reported) Entered as Reported by: RUBI ROB on 02/15/16 000 [Benzocaine/Menthol] 56 ML AEROSOL, 56 ML TP UD PRN for PAIN- SEE INSTRUCTIONS Prescribed by: KALEN NOEL on 11/24/17 1027 OB - Assessment/Plan/Diagnosis Plan Other Plan Verification and Attestation of Medical Student E/M Service A medical student performed and documented this service in my presence. I reviewed and verified all information documented by the medical student and made modifications to such information, when appropriate. I personally performed the physical exam and medical decision making. Kalen Noel, Mar 04, 2022,10:39 AARON GREGORY Mar 04, 2022 7:55 am KALEN NOEL DO Mar 04, 2022 10:39 am
[2022-03-04] MEDS ORDERED: LIDOCAINE 1% INJ 20 ML VIAL ONE (08:28)
[2022-03-04] MEDS ORDERED: OXYTOCIN PRE-MIX DRIP 500 ML IV ONE ×2 (08:28→10:45)
[2022-03-04] MEDS: fentaNYL 2 mcg/ml BUPIVA 0.125 100 ML IV SCH ×2 (08:35→08:36)
[2022-03-04] MEDS: OXYTOCIN PRE-MIX DRIP 500 ML IV SCH ×2 (10:16→10:48)
--- NOTE | 2022-03-04 10:38 | OB Labor & Delivery Record ---
L&D History Date of Service Date of Service: Mar 04, 2022 History Expected Date of Delivery: Mar 11, 2022 Gestational Age in Weeks: 39 Hx : 4 Hx Para: 2 Complications Events: Routine care Operative Indications (Cesarea: N/A-Vaginal Delivery Intrapartal Events: None Other Complications vaginal bleeding increase in late 1st stage labor L&D Stage1 Stage One Onset of Labor - Date: Mar 04, 2022 Monitors and Tracing Monitor Mode: External Heart Rate: 120 Monitor Decelerations: None Station: -2 [facility] Variability: Average (6-10) Short Term Variability: Present Presentation: Vertex Vital Signs VS - Last 72 Hours, by Label 03/03/22 03/04/22 03/04/22 03/04/22 21:49 00:45 00:55 01:00 Temp 36.7 36.6 Pulse 65 67 64 78 Resp 18 18 B/P (MAP) 124/71 128/75 (92) 119/72 (88) 118/71 (87) Pulse Ox 100 100 100 100 O2 Delivery Room Air Room Air Room Air Room Air 03/04/22 03/04/22 03/04/22 03/04/22 01:05 01:10 01:15 01:20 Pulse 67 64 66 69 Resp 18 B/P (MAP) 118/69 (85) 122/71 (88) 117/71 (86) Pulse Ox 100 100 100 100 O2 Delivery Room Air Room Air Room Air Room Air 03/04/22 03/04/22 03/04/22 03/04/22 01:25 01:30 01:35 01:40 Pulse 67 74 62 67 B/P (MAP) 113/64 (80) 111/66 (81) 102/63 (76) 104/63 (77) Pulse Ox 100 100 100 100 O2 Delivery Room Air Room Air Room Air Room Air 03/04/22 03/04/22 03/04/22 03/04/22 01:45 01:50 01:55 02:00 Pulse 67 61 60 71 Resp 16 B/P (MAP) 104/61 (75) 111/53 (72) 98/50 (66) 106/58 (74) Pulse Ox 100 100 100 100 O2 Delivery Room Air Room Air Room Air Room Air 03/04/22 03/04/22 03/04/22 03/04/22 02:05 02:08 02:15 02:30 Temp 36.7 Pulse 68 65 60 Resp 16 B/P (MAP) 100/60 (73) 108/62 (77) 97/56 (70) Pulse Ox 100 100 98 O2 Delivery Room Air Room Air Room Air 03/04/22 03/04/22 03/04/22 03/04/22 02:45 03:00 03:15 03:30 Pulse 70 61 73 58 Resp 16 16 16 16 B/P (MAP) 93/53 (66) 98/60 (73) 101/60 (74) 99/60 (73) Pulse Ox 97 98 97 97 O2 Delivery Room Air Room Air Room Air Room Air 03/04/22 03/04/22 03/04/22 03/04/22 03:45 04:00 04:15 04:30 Pulse 56 54 56 57 Resp 16 16 16 16 B/P (MAP) 99/58 (72) 96/58 (71) 93/55 (68) 93/56 (68) Pulse Ox 98 98 98 98 O2 Delivery Room Air Room Air Room Air Room Air 03/04/22 03/04/22 03/04/22 03/04/22 04:45 05:00 05:15 05:30 Pulse 62 58 56 62 Resp 16 16 16 16 B/P (MAP) 88/53 (65) 88/51 (63) 93/55 (68) 89/53 (65) Pulse Ox 98 98 98 99 O2 Delivery Room Air Room Air Room Air Room Air 03/04/22 03/04/22 03/04/22 03/04/22 05:45 06:00 06:15 06:30 Pulse 53 55 54 62 Resp 16 16 16 16 B/P (MAP) 89/51 (64) 89/55 (66) 98/56 (70) 89/51 (64) Pulse Ox 98 99 98 100 O2 Delivery Room Air Room Air Room Air Room Air 03/04/22 06:45 Pulse 53 Resp 16 B/P (MAP) 96/54 (68) Pulse Ox 100 O2 Delivery Room Air Rupture of Membranes Spontaneous Ruture of Membrane: No Amniotic Membrane Rupture Time: 08:10 Amniotic Membrane Fluid Desc.: Bloody Vaginal Bleeding Description: Normal Show Induction/Anesthesia Epidural Cath Placement - Time: 57 Progress/Notes Patient admitted last night in active labor. She received an epidural and AROM performed this AM she progressed to complete and + 2 station. L&D Stage2 Monitors and Tracing Monitor Mode: External Heart Rate: 120 Monitor Decelerations: None Saw Maker Variability: Average (6-10) Short Term Variability: Present Position: Right Occiput Anterior Presentation: Vertex Cord Descript/Complications Cord Vessel Description: 3 Vessels Delivery Type Delivery Method: Spontaneous Vaginal Anterior Shoulder: Left Episiotomy/Perineal Laceration Laceraction(s)/Extensions: Yes Episiotomy Description: Perineal Extension/lac, 2nd degree Degree (describe repair) laceration repaired using 3-0 rapide vicryl in usual fashion. Condition of Delivery 1 minute Comment: 8 5 minute Comment: 9 Notes Live female weight 7lbs 3 oz. Condition of Infant Condition of Infant: Living Exam: No Observed Abnormalities Resuscitation Resuscitation: N/A - Spontaneous Resp L&D Stage3 Stage Three Stage III Date: Mar 04, 2022 Pictocin Pitocin Administration Comment: 30 mu wide open after delivery of placenta Placenta Delivery Placenta Delivery: Spontaneous Delivery Summary Summary Estimated blood loss (mL): 450 Attending at delivery: Wendy Noel DO Condition of Delivery Examined: Cervix Examined, Uterus Explored Post Hemorrhage: No Condition of Mother stable Condition of (s) stable WENDY NOEL DO Mar 04, 2022 10:38 am
[2022-03-04] MEDS ORDERED: MEASLES,MUMPS,RUBELLA 1 EA INJ SQ ONE (10:45)
[2022-03-04] MEDS ORDERED: TETANUS,DIPTH,PERTUSS P/F (BOOSTRIX) 0.5 ML VIAL IM ONE (10:45)
[2022-03-04] MEDS ORDERED: IBUPROFEN 600 MG (MOTRIN) TAB PO ONE (10:46)
[2022-03-04] MEDS: IBUPROFEN 600 MG (MOTRIN) TAB PO SCH ×2 (10:48→17:50)
[2022-03-04] MEDS ORDERED: CATHETER FLUSH 10 ML SYR IV SCH (14:00)
[2022-03-04] MEDS: ACETAMINOPHEN 500 MG TAB (TYLENOL) PO SCH (17:50)
[2022-03-04] MEDS: BENZOCAINE/MENTHOL (DERMOPLAST) 56 ML CAN TP PRN (17:50)
[2022-03-04] MEDS: WITCH HAZEL(TUCKS) 40 EA JAR TOP PRN (17:50)
[2022-03-04] MEDS: CATHETER FLUSH 10 ML SYR IV SCH ×3 (17:50→21:45)
[2022-03-04] MEDS: DIBUCAINE 1% OINTMENT 30 GM TUBE TOP PRN (17:50)
[2022-03-04] MEDS: DOCUSATE SODIUM 100 MG (COLACE) CAP PO SCH (21:44)
[2022-03-05] MEDS: ACETAMINOPHEN 500 MG TAB (TYLENOL) PO SCH ×3 (00:01→13:47)
[2022-03-05] MEDS: IBUPROFEN 600 MG (MOTRIN) TAB PO SCH ×3 (00:01→13:47)
[2022-03-05 02:14] VITALS: BP 98/56
[2022-03-05 06:00] LABS: BASOPHILS % (AUTO) 0 % (0-10); HEMOGLOBIN 10.8 g/dL (11.5-16.0); MEAN CORPUSCULAR VOLUME 94 fL (80-99)
[2022-03-05 06:02] LABS: EOSINOPHILS # (AUTO) 0.1 10^3/uL (0.0-0.3); EOSINOPHILS % (AUTO) 1 % (0-10); HEMATOCRIT 31 % (35-52); LYMPHOCYTES # (AUTO) 3.1 10^3/uL (1.0-4.0); LYMPHOCYTES % (AUTO) 34 % (12-44); MEAN CORPUSCULAR HEMOGLOBIN 33 pg (25-34); MEAN CORPUSCULAR HGB CONC 35 g/dL (32-36); MEAN PLATELET VOLUME 10.9 fL (9.0-12.2); MONOCYTES # (AUTO) 0.7 10^3/uL (0.0-1.0); MONOCYTES % (AUTO) 7 % (0-12); NEUTROPHILS # (AUTO) 5.1 10^3/uL (1.8-7.8); NEUTROPHILS % (AUTO) 57 % (42-75); PLATELET COUNT 143 10^3/uL (130-400)
[2022-03-05] MEDS: CATHETER FLUSH 10 ML SYR IV SCH (06:07)
[2022-03-05 06:12] LABS: SMEAR SCAN COMMENT YES
[2022-03-05 06:28] VITALS: BP 100/52
[2022-03-05] MEDS ORDERED: PRENATAL VITAMIN 1 EA TAB PO SCH (07:00)
--- NOTE | 2022-03-05 08:28 | Postpartum Progress Note ---
AARON GREGORY 03/05/22 0828: Note Note Day # 1 Subjective: Patient is without complaints. Ambulating, voiding. Tolerating a regular diet without nausea or vomiting. Normal lochia. Pain is well controlled with oral pain medications. Breast feeding. Patient has not had a bowel movement since delivering. Objective: Patient was sitting up in a chair breast feeding at the beginning of the interview. Physical Exam: General - Alert and oriented, no apparent distress Cardiac- regular rate, no murmurs Lungs- clear breath sounds bilaterally, no crackles or rhales Abdomen - Soft, appropriately tender to palpation, non-distended, fundus firm at umbilicus Extremities - no edema, negative Crescencio's bilaterally, dorsalis pedis pulse 3+ bilaterally Assessment: Vaginal delivery post- day # 1, status post vaginal delivery. Recovering well, hemodynamically stable Plan: Routine care. Encourage breast feeding. Encourage ambulation. Ferrous sulfate supplementation. Plan for discharge today Vitals - Labs Vital Signs - I&O Vital Signs Date Time Temp Pulse Resp B/P (MAP) Pulse Ox O2 Delivery O2 Flow Rate FiO2 03/05/22 06:28 36.1 62 15 100/52 (68) 99 Room Air 03/05/22 02:14 36.4 57 16 98/56 (70) 96 Room Air 03/04/22 22:00 36.7 61 16 109/56 (73) 97 Room Air 03/04/22 21:00 98 Room Air 03/04/22 18:05 36.8 60 18 131/75 (93) 99 Room Air 03/04/22 17:11 57 20 110/66 (81) Room Air 03/04/22 12:00 57 20 110/66 (81) Room Air 03/04/22 11:45 60 20 114/70 (85) Room Air 03/04/22 11:30 53 20 111/63 (79) Room Air 03/04/22 11:15 63 20 106/55 (72) Room Air 03/04/22 11:00 67 20 99/56 (70) Room Air 03/04/22 10:45 74 20 111/60 (77) 100 Room Air 03/04/22 10:15 36.8 61 20 124/66 (85) 93 Room Air 03/04/22 10:00 61 20 114/63 (80) 97 Room Air 03/04/22 09:45 59 20 106/67 (80) 94 Room Air 03/04/22 09:30 56 16 105/65 (78) 96 Room Air 03/04/22 09:15 36.1 54 16 101/60 (74) 97 Room Air 03/04/22 09:00 59 16 104/68 (80) 97 Room Air 03/04/22 08:45 56 16 102/61 (75) 97 Room Air 03/04/22 08:30 56 16 116/69 (85) 100 Room Air I & O 03/05/22 07:00 Intake Total 4180 ml Balance 4180 ml Labs Laboratory Tests 03/05/22 05:20: White Blood Count 9.0, Red Blood Count 3.32L, Hemoglobin 10.8L, Hematocrit 31L, Mean Corpuscular Volume 94, Mean Corpuscular Hemoglobin 33, Mean Corpuscular Hemoglobin Concent 35, Red Cell Distribution Width 12.5, Platelet Count 143, Mean Platelet Volume 10.9, Immature Granulocyte % (Auto) 0, Neutrophils (%) (Auto) 57, Lymphocytes (%) (Auto) 34, Monocytes (%) (Auto) 7, Eosinophils (%) (Auto) 1, Basophils (%) (Auto) 0, Neutrophils # (Auto) 5.1, Lymphocytes # (Auto) 3.1, Monocytes # (Auto) 0.7, Eosinophils # (Auto) 0.1, Basophils # (Auto) 0.0, Immature Granulocyte # (Auto) 0.0, Percent Immature Platelet Fraction 2.7, Smear Scan YES Microbiology 03/03/22 Urine Culture - Final, Complete Gram Pos Mixed Bacterial Mary See Comments KALEN NOEL DO 03/05/22 0931: Note Note Diagnosis addendum: Acute blood loss anemia Verification and Attestation of Medical Student E/M Service A medical student performed and documented this service in my presence. I reviewed and verified all information documented by the medical student and made modifications to such information, when appropriate. I personally performed the physical exam and medical decision making. Kalen oNel, Mar 05, 2022,09:31 AARON GREGORY Mar 05, 2022 08:28 KALEN NOEL DO Mar 05, 2022 09:31
[2022-03-05] MEDS ORDERED: FERROUS SULF 325 MG (IRON) TAB PO SCH (09:00)
[2022-03-05] MEDS ORDERED: IBUP-844 PO (09:13)
[2022-03-05] MEDS ORDERED: WTCHGPD TOP (09:13)
[2022-03-05] MEDS ORDERED: hy (09:13)
[2022-03-05] MEDS ORDERED: DOCU100C37 PO (09:13)
[2022-03-05] MEDS ORDERED: BENZ78AE5 TP (09:13)
[2022-03-05] MEDS ORDERED: DIBU30OI TOP (09:13)
[2022-03-05] MEDS ORDERED: ACHD5005 PO (09:13)
--- NOTE | 2022-03-05 09:14 | Discharge Inst-Women's Service ---
Discharge Inst-Women's Serv Depart Medication/Instructions New, Converted or Re-Newed RX: Transmitted to Pharmacy Consults/Follow Up Additional Follow Up: Yes (6wk appt) Activity Activity: Activity as Tolerated Driving Instructions: No Driving for 1 Week NO SMOKING: NO SMOKING Nothing Inside Vagina: No Douching, No [place], No Tampons Diet Discharge Diet: No Restrictions Symptoms to Report to : Pain Increased, Fever Over 101 Degrees F, Vaginal Bleeding Increase For Any Problems or Questions: Contact Your Physician VINAYAK ZUNIGA APRN Mar 05, 2022 09:14
[2022-03-05 09:20] VITALS: BP 107/69
[2022-03-05] MEDS: DOCUSATE SODIUM 100 MG (COLACE) CAP PO SCH (09:23)
[2022-03-05] MEDS: BENZOCAINE/MENTHOL (DERMOPLAST) 56 ML CAN TP PRN (09:23)
[2022-03-05] MEDS: WITCH HAZEL(TUCKS) 40 EA JAR TOP PRN (09:24)
[2022-03-05] MEDS: DIBUCAINE 1% OINTMENT 30 GM TUBE TOP PRN (09:24)
--- NOTE | 2022-03-05 14:49 | Anesthesia-Regional Post-Op ---
Regional Patient Condition Mental Status: Alert, Oriented x3 Circulation: Same as Pre-Op Headache: Absent Sensation: Full Recovery Motor Block: Absent Post Op Complications Complications None Follow Up Care/Instructions Patient Instructions None needed. Anesthesia/Patient Condition Patient was seen yesterday after delivery and she was doing well, no complaints, stable vital signs, no apparent adverse anesthesia problems. No complications reported per nursing. ELIAS SANTAMARIA DO Mar 05, 2022 14:49
== END 2022-03-05 14:15 | disposition home or self-care (01) | DRG 806 ==
LOC: WSo 21:06 → LDRP 21:07 → WSo 22:30 → LDRP 22:33
PROVIDERS: ADMIT Obstetrics & Gynecology; ATTEND Obstetrics & Gynecology
PROC: 10E0XZZ Delivery of Products of Conception, External Approach (ICD-10-PCS; principal; 2022-03-04)
PROC: 0KQM0ZZ Repair Perineum Muscle, Open Approach (ICD-10-PCS; 2022-03-04)
PROC: 10907ZC Drainage of Amniotic Fluid, Therapeutic from Products of Conception, Via Natural or Artificial Opening (ICD-10-PCS; 2022-03-04)
DX: O99.824 Streptococcus B carrier state complicating childbirth (principal); D62 Acute posthemorrhagic anemia; Z37.0 Single live birth; Z3A.39 39 weeks gestation of pregnancy; Z87.891 Personal history of nicotine dependence; O70.1 Second degree perineal laceration during delivery; O90.81 Anemia of the puerperium
CPT/HCPCS: 36415; 81000; 85025; 86780; 86850; 86900; 86901; 87088

== ENCOUNTER → 2022-07-30 | Outpatient (CLI) | payer BC ==
[~2022-07-30] MED LIST changes: +BENZ78AE5 TP; +DIBU30OI TOP; +WTCHGPD TOP; +hy
--- NOTE | 2022-07-30 15:51 | Diagnostic Imaging Report ---
INDICATION: Routine screening. COMPARISON is made with prior mammogram from 10/08/2019. 2-D and 3-D bilateral screening mammography was performed with CAD. Bilateral subpectoral breast implants are again noted. Implant contours are smooth. There is no evidence of extracapsular rupture. Both breasts are heterogeneously dense, limiting the sensitivity of mammography. No mass or malignant-appearing microcalcifications are seen. Axillae are unremarkable. IMPRESSION: BI-RADS Category 2 No mammographic features suspicious for malignancy are identified. ACR BI-RADS Category 2: Benign findings. Result letter will be mailed to the patient. Note: At least 10% of breast cancer is not imaged by mammography. Dictated by: Dictated on workstation # [id number]
== END ==
LOC: RAD 14:37
PROVIDERS: ATTEND Internal Medicine
DX: Z12.31 Encounter for screening mammogram for malignant neoplasm of breast (principal)
CPT/HCPCS: 77063; 77067